=== PATIENT | male | born 1980 | race Caucasian/White ===

== ENCOUNTER 2022-04-03 07:35 | Outpatient (CLI) | payer OTHER, SELFPAY ==
[2022-04-03 14:42] LABS: Hepatitis C Virus Antibody* Negative (Negative)
[2022-04-03 15:07] LABS: Albumin* 4.5 g/dL (3.3-5.0); Chloride* 98 mmol/L (96-114); Potassium* 4.2 mmol/L (3.6-5.1); Sodium* 136 mmol/L (135-149)
[2022-04-03 15:10] LABS: Alanine Aminotransferase* 28 U/L (4-50); Alkaline Phosphatase* 108 U/L (40-150); Aspartate Amino Transferase* 36 U/L (12-35); Bilirubin Total* 0.4 mg/dL (0.1-1.5); Blood Urea Nitrogen* 24 mg/dL (5-24); Carbon Dioxide* 32 mmol/L (20-32); Creatinine* 0.6 mg/dL (0.5-1.5); Estimated Glomerular Filt Rate 123 ml/min; Glucose* 128 mg/dL (60-115); Total Protein* 7.3 g/dL (6.0-8.3)
[2022-04-03 15:11] LABS: Calcium* 9.4 mg/dL (8.4-10.6)
== END 2022-04-03 07:36 | disposition home or self-care (01) ==
PROVIDERS: PCP Family Medicine; Visit Provider Family Medicine
DX: K76.9 Liver disease, unspecified (principal); R73.03 Prediabetes; I10 Essential (primary) hypertension; Z11.59 Encounter for screening for other viral diseases
CPT/HCPCS: 80053; 86803

== ENCOUNTER 2022-05-02 15:28 | Emergency (ER) | payer OTHER, SELFPAY ==
[2022-05-02 15:34] VITALS: BP 150/82; PULSE 80; RESP 18; TEMP 36.7; O2SAT 94; BMI 33.5
--- NOTE | 2022-05-02 15:59 | ED_ITS ---
HPI - General Adult General Chief complaint: Shortness of Breath/Dyspnea Stated complaint: Trouble Breathing Low O2 Time Seen by Provider: 05/02/22 15:51 History of Present Illness HPI narrative: This 42-year-old male comes in reporting cough and some shortness of breath since yesterday. He states that he had dental work done yesterday and had a root canal to attend to an abscess that was extending up into his left maxillary sinus. He was placed on amoxicillin and took 2 doses yesterday and 1 dose today. He states that he had a temperature at about 100 last night. He has an oximeter at home and reports that his oximetry was in the low 90s this morning. Upon arrival here his oximetry on room air is at 94%. His pulse, respirations, and temperature are in normal range. He states that he has a history of asthma symptoms that flare up when he is having a respiratory infection. He states that he did use albuterol inhaler and this did not provide much relief to his symptoms. Related Data Home Medications Medication Instructions Recorded Confirmed albuterol sulfate 90 mcg/actuation 2 inhalation PRN 03/21/22 04/03/22 aerosol inhaler chlorthalidone 25 mg tablet mg PO DAILY 03/21/22 04/03/22 escitalopram oxalate 5 mg tablet 5 mg PO DAILY 03/21/22 04/03/22 lisdexamfetamine 70 mg capsule 70 mg PO QAM 03/21/22 04/03/22 lisinopril 10 mg tablet 10 mg PO DAILY 04/03/22 04/03/22 Previous Rx's Medication Instructions Recorded metformin 500 mg tablet,extended 500 mg PO BID #180 tabs 04/03/22 release 24 hr sildenafil 50 mg tablet 50 mg PO QDAY PRN sexual activity 04/03/22 #30 tabs methylprednisolone 4 mg tablets in See Rx Instructions PO .COMPLEX 05/02/22 a dose pack (Medrol ([facility])) #21 ea oseltamivir 75 mg capsule (Tamiflu) 75 mg PO BID 5 days #10 caps 05/02/22 Allergies Allergy/AdvReac Type Severity Reaction Status Date / Time Cephalosporins Allergy Mild swelling Verified 04/03/22 07:23 Review of Systems Status of ROS: Reports: 10 or more systems reviewed and unremarkable except as noted in History and below Narrative: Constitutional: No fevers, no weight gain or loss. Eyes: No discharge. No vision changes. HENT: No congestion, no ear pain. He reports a sore throat. Cardiovascular: No chest pain, no palpitations. Respiratory: Cough with shortness of breath. Gastrointestinal: No abdominal pain, no vomiting, no diarrhea. Genitourinary: No dysuria, no hematuria. Musculoskeletal: Normal range of motion. Skin: No rashes, no pruritis. Neurological: No dizziness, weakness, sensory change, speech change. Endo/Heme/Allergies: No bruising or bleeding. No polydipsia. Pysch: no suicidality, no anxiety, no insomnia. All other systems reviewed and are negative. [facility] Surgical History (Updated 03/17/22 @ 13:41 by Jacqueline Bowens) History of shoulder surgery Social History Smoking Status: Former smoker Do you use any of these nicotine containing products: None Second hand tobacco smoke exposure: No How often do you have a drink containing alcohol: never AUDIT-C Alcohol total score: 0 Non-prescribed substance use: marijuana (any form) Exam Narrative: Exam Narrative: Constitutional: Well-developed, well-nourished, no acute distress. HEENT: Normocephalic, atraumatic. Neck: Normal range of motion. Nontender. Supple. Heart: Regular. No murmurs. Normal rate. Intact distal pulses. Lungs: Clear to auscultation. No chest discomfort. No wheezes, rhonchi, or rales. Abdomen: Normal bowel sounds. Nontender. No rebound tenderness. Genitalia: Deferred. Back: No midline tenderness. Normal range of motion. Extremities: Normal range of motion. No injury. Skin: Intact. No rash. Warm. No erythema or pallor. Neurologic: No altered sensation. No weakness. Alert and oriented. Psychiatric: No suicidality. No anxiety or depression. No insomnia. Nursing notes and vitals signs are reviewed. Const: Vital Signs, click to edit/add: Vital Signs - 24 hr 05/02/22 15:34 Temperature 98.0 F Pulse Rate [Right Pulse Oximeter] 80 Respiratory Rate 18 Blood Pressure [Ri ght Upper Arm] 150/82 H Pulse Oximetry 94 Oxygen Delivery Me thod Room Air Course Vital Signs Vital signs: Initial Vital Signs Temperature 98.0 F 05/02/22 15:34 Temperature Source Temporal Artery Scan 05/02/22 15:34 Pulse Rate 80 11/22/22 15:34 Respiratory Rate 18 05/02/22 15:34 Blood Pressure 150/82 H 05/02/22 15:34 Blood Pressure Mean 104 05/02/22 15:34 Blood Pressure Position Sitting 05/02/22 15:34 Pulse Oximetry 94 05/02/22 15:34 Oxygen Delivery Method 05/02/22 15:34 Vital Signs Temperature 98.0 F 05/02/22 15:34 Pulse Rate 80 05/02/22 15:34 Respiratory Rate 18 05/02/22 15:34 Blood Pressure 150/82 H 05/02/22 15:34 Pulse Oximetry 94 05/02/22 15:34 Oxygen Delivery Method 05/02/22 15:34 Temperature 98.0 F 05/02/22 15:34 Pulse Rate 80 05/02/22 15:34 Respiratory Rate 18 05/02/22 15:34 Blood Pressure 150/82 H 05/02/22 15:34 Pulse Oximetry 94 05/02/22 15:34 Oxygen Delivery Method 05/02/22 15:34 Medical Decision Making MDM Narrative Medical decision making narrative: This patient is currently taking amoxicillin prescribed by his dentist as he had some dental work done yesterday including an abscess. He comes in reporting a cough and low-grade fever with some decreased oximetry since last evening. He received an oral dose of dexamethasone 10 mg. Nasopharyngeal swab returns [facility] for COVID and RSV. It is positive for influenza A. The patient is a candidate for Tamiflu so this is prescribed along with a Medrol Dosepak. Lab Data Labs: Lab Results 05/02/22 Range/Units 16:17 SARS-CoV-2 (PCR) Negative SARS-CoV-2 (Negative) Influenza Type A (PCR) POSITIVE PCR FLU A A (Negative) Influenza Type B (PCR) Negative PCR FLU B (Negative) RSV (PCR) Negative PCR RSV (Negative) Discharge Plan Discharge Clinical Impression: Influenza A Patient Disposition: Home, Self-Care Condition: Stable Additional Instructions: Take medications as needed and indicated. Follow up with MD or return if worsening. Prescriptions: New oseltamivir [Tamiflu] 75 mg capsule 75 mg PO BID 5 Days Qty: 10 0RF methylprednisolone [Medrol ([facility])] 4 mg tablets,dose pack See Rx Instructions .ROUTE .COMPLEX Qty: 21 0RF Rx Instructions: orally per package directions No Action lisdexamfetamine 70 mg capsule 70 mg PO QAM escitalopram oxalate 5 mg tablet 5 mg PO DAILY chlorthalidone 25 mg tablet PO DAILY albuterol sulfate 90 mcg/actuation HFA aerosol inhaler 2 inhalation PRN lisinopril 10 mg tablet 10 mg PO DAILY Label Comments: TAKE ONE TABLET BY MOUTH EVERY DAY sildenafil 50 mg tablet 50 mg PO QDAY PRN (Reason: sexual activity) Qty: 30 12RF Rx Instructions: administer 30 minutes to 4 hours before activity metformin 500 mg tablet extended release 24 hr 500 mg PO BID Qty: 180 3RF Follow Up/Referrals: Margie Marino DO [Primary Care Provider] - Stand Alone Forms: MyHealth Info Instructions
[2022-05-02] MEDS: dexAMETHasone 10 MG/ML inj PO (16:26)
[2022-05-02 17:03] LABS: PCR FLU A POSITIVE PCR FLU A (Negative); PCR FLU B Negative PCR FLU B (Negative); PCR RSV Negative PCR RSV (Negative)
[2022-05-02 17:13] LABS: SARS PCR* Negative SARS-CoV-2 (Negative)
== END 2022-05-02 17:40 | disposition home or self-care (01) ==
PROVIDERS: Emergency Provider Emergency Medicine Emergency Medical Services; PCP Family Medicine
DX: J10.1 Influenza due to other identified influenza virus with other respiratory manifestations (principal)
CPT/HCPCS: 87502; 87634; 87635; 99283; 99284; J1100